=== PATIENT | female | born 1945 | race Caucasian/White ===

== ENCOUNTER → 2016-12-23 | Outpatient (CLI) | payer MEDICARE, BC ==
--- NOTE | 2016-12-23 23:24 | RADRPT ---
PROCEDURE: XR Left Hip and pelvis. CLINICAL INDICATION: Left hip pain. Pelvic pain. Postop. TECHNIQUE: Three views. Frontal pelvis. Frontal and lateral left hip. COMPARISON: 04/22/2016. FINDINGS: There is no fracture or dislocation. The soft tissues are normal. There is a left hip hemiarthroplasty which appears satisfactory. There is mild right hip osteoarthropathy with osteophytes noted. There is no lytic or blastic lesion. The sacroiliac joints are unremarkable. There is an inferior vena cava filter partially visualized. IMPRESSION: 1. Satisfactory postoperative appearance of the left hip. 2. Mild degenerative changes of the right hip. RPTAT: QQ .Ezekiel Morris MD, Date Time Electronically viewed and signed by .Ezekiel Morris MD, on 12/23/2016 23:24 .R/
== END | disposition home or self-care (01) ==
LOC: HKI 15:02
PROVIDERS: ATTEND Orthopaedic Surgery
DX: Z47.89 Encounter for other orthopedic aftercare (principal); Z96.642 Presence of left artificial hip joint
CPT/HCPCS: 73502; G0463